=== PATIENT | female | born 1955 | race African-American/Black ===

== ENCOUNTER 2018-07-24 10:03 | Day surgery (SDC) | payer OTHER ==
[2018-07-23 12:22] VITALS: BMI 25.8
--- NOTE | 2018-07-23 13:18 | HP ---
HISTORY OF PRESENT ILLNESS: This is a 63-year-old female comes with a colonoscopy for colon cancer screening. The patient has no specific GI symptoms. She has no family history of colon cancer. Her last colonoscopy was in 2007. ALLERGIES: NONE. SOCIAL HISTORY: The patient does not smoke or drink alcohol. MEDICAL ILLNESS: 1. Hypertension. 2. Diabetes. 3. Hyperlipidemia. 4. Asthma. PAST SURGICAL HISTORY: None. PHYSICAL EXAMINATION: VITAL SIGNS: Pulse is 73, blood pressure is 120/76. Conjunctivae clear. NECK: Supple. No adenitis or thyromegaly noted. CARDIOVASCULAR: First and second heart sounds are normal. LUNGS: Clear to auscultation. ABDOMEN: Soft. No organomegaly. No tenderness. No masses. EXTREMITIES: Reveal no edema. ADMITTING DIAGNOSIS: A 63-year-old female comes for a colonoscopy for colon cancer screening. Job ID: [id number]
--- NOTE | 2018-07-24 14:02 | OP ---
DATE OF PROCEDURE: 07/24/2018 OPERATIVE PROCEDURE: Colonoscopy. PREOPERATIVE DIAGNOSIS: A 63-year-old female undergoing colonoscopy for colon cancer screening. POSTOPERATIVE DIAGNOSES: 1. Mild sigmoid diverticular disease. 2. Small hemorrhoids. DESCRIPTION OF PROCEDURE: The patient was placed on her left lateral position and was given sedation by Anesthesia Department. A rectal exam was done before the scope was advanced into the rectum. No lesions felt on rectal exam. A Pentax video colonoscope was introduced into the rectum and advanced all the way into the cecum. The prep is very good. The mucosa appears normal throughout the colon with normal vascular pattern. The appendiceal orifice, ileocecal wall, cecum, no pathology seen. The ascending colon, hepatic flexure, no pathology seen. The transverse colon, splenic flexure no pathology seen. The descending colon, no pathology seen. The sigmoid colon shows scattered diverticular disease. Retroflexion of the scope in the rectum showed small hemorrhoids. DISCHARGE PLANNING: Ms. Roberto Yun is a very pleasant 63-year-old female, came for colonoscopy for colon cancer screening. She underwent colonoscopy and was found to have scattered sigmoid diverticular disease. DISCHARGE RECOMMENDATIONS: The patient does call me if she develops abdominal pain, hematochezia. In the absence of any other symptoms, the patient will come back to me in 2 weeks. Job ID: [id number]
== END 2018-07-24 13:53 | disposition home or self-care (01) ==
LOC: SDC 10:03
PROVIDERS: ATTEND Internal Medicine Gastroenterology
PROC: 0DJD8ZZ Inspection of Lower Intestinal Tract, Via Natural or Artificial Opening Endoscopic (ICD-10-PCS; principal; 2018-07-24)
DX: Z12.11 Encounter for screening for malignant neoplasm of colon (principal); K57.30 Diverticulosis of large intestine without perforation or abscess without bleeding; K64.9 Unspecified hemorrhoids; I10 Essential (primary) hypertension; E11.9 Type 2 diabetes mellitus without complications; E78.5 Hyperlipidemia, unspecified; J45.909 Unspecified asthma, uncomplicated; Z79.82 Long term (current) use of aspirin; Z79.84 Long term (current) use of oral hypoglycemic drugs; Z79.899 Other long term (current) drug therapy

== ENCOUNTER 2019-10-29 14:00 | Outpatient (CLI) | payer MEDICARE, MEDICAID ==
--- NOTE | 2019-11-10 15:47 | MMO ---
Bilateral MAMMO Bilat Screen [facility]. CLINICAL HISTORY: Patient is 64 years old and is seen for screening. The patient has the following family history of breast cancer: mother, at age 42, premenopausal. The patient has no personal history of cancer. VIEWS: The views performed were: bilateral craniocaudal with tomosynthesis and bilateral mediolateral oblique with tomosynthesis. FILMS COMPARED: The present examination has been compared to prior imaging studies performed at [facility] on 03/05/2014, and at [facility] on 09/02/2015, 03/29/2017 and 05/29/2018. This study has been interpreted with the assistance of computer-aided detection. MAMMOGRAM FINDINGS: The breasts are heterogeneously dense, which could obscure a lesion on mammography. Benign calcifications are noted bilaterally. There are no suspicious masses, suspicious calcifications, or new areas of architectural distortion. IMPRESSION: THERE IS NO MAMMOGRAPHIC EVIDENCE OF MALIGNANCY. A ROUTINE FOLLOW-UP MAMMOGRAM IN 1 YEAR IS RECOMMENDED. THE RESULTS OF THIS EXAM WERE SENT TO THE PATIENT. ACR BI-RADS Category 2 - Benign finding MAMMOGRAPHY NOTE: 1. A negative mammogram report should not delay a biopsy if a dominant of clinically suspicious mass is present. 2. Approximately 10% to 15% of breast cancers are not detected by mammography. 3. Adenosis and dense breasts may obscure an underlying neoplasm. Reported by: THANG MOREIRA MD Electonically Signed: [id number]
== END 2019-10-29 14:01 | disposition home or self-care (01) ==
LOC: BICMAMMO 14:00
PROVIDERS: ATTEND Family Medicine
DX: Z12.31 Encounter for screening mammogram for malignant neoplasm of breast (principal); Z80.3 Family history of malignant neoplasm of breast
CPT/HCPCS: 77063; 77067

== ENCOUNTER 2022-06-16 11:55 | Outpatient (CLI) | payer OTHER, MEDICAID | END 2022-06-16 11:56 | disposition home or self-care (01) | LOC: BICMAMMO 11:55 | PROVIDERS: ATTEND Family Medicine | DX: Z12.31 Encounter for screening mammogram for malignant neoplasm of breast (principal); R92.1 Mammographic calcification found on diagnostic imaging of breast; Z80.3 Family history of malignant neoplasm of breast | CPT/HCPCS: 77063; 77067 ==

== ENCOUNTER 2023-07-13 10:44 | Outpatient (CLI) | payer OTHER, MEDICAID | END 2023-07-13 10:45 | disposition home or self-care (01) | LOC: BICMAMMO 10:44 | PROVIDERS: ATTEND Internal Medicine | DX: Z12.31 Encounter for screening mammogram for malignant neoplasm of breast (principal) | CPT/HCPCS: 77063; 77067 ==

== ENCOUNTER 2024-12-24 14:49 | Outpatient (CLI) | payer OTHER, MEDICAID | END 2024-12-24 14:50 | disposition home or self-care (01) | LOC: RAD 14:49 | PROVIDERS: ATTEND Internal Medicine | DX: J44.9 Chronic obstructive pulmonary disease, unspecified (principal) | CPT/HCPCS: 71046 ==